=== PATIENT | female | born 1950 | race Caucasian/White ===

== ENCOUNTER → 2017-05-24 | Day surgery (SDC) | payer MEDICARE ==
--- NOTE | 2017-05-24 12:15 | MMO ---
STEREOTACTIC GUIDED LEFT BREAST BIOPSY: Date: 05/24/17 HISTORY: Increasing number of microcalcifications in the left breast. Biopsy was requested. TECHNIQUE: This examination was performed by Dr. Forde. Microcalcifications are seen within the anterior dept h left breast with several loosely grouped calcifications noted. More anteriorly and more closely cl ustered grouping of microcalcifications were localized with stereotactic guidance. Biopsy was then p erformed by Dr. Forde and will be dictated as a separate report. Biopsy marker clip was present on post biopsy imaging. IMPRESSION: 1. Successful stereotactic guided localization of left breast microcalcifications. Several microcal cifications are seen in the left breast which have increased in number compared to prior mammograms, and the more closely clustered grouping of microcalcifications anteriorly were localized as describ ed above. 2. Localization clip is noted in place on final images. POS: NICOLE
--- NOTE | 2017-05-24 12:21 | MMO ---
SPECIMEN MAMMOGRAM: Date: 05/24/17 HISTORY: Increasing microcalcifications in the anterior depth left breast. Stereotactic guided breast biopsy was performed. Specimen mammogram was then performed for evaluation of microcalcifications. FINDINGS: The specimen mammogram demonstrates scattered punctate microcalcifications within several provided c ore specimens. IMPRESSION: Microcalcifications seen within specimen mammogram. POS: NICOLE
--- NOTE | 2017-05-24 12:25 | MMO ---
POST BIOPSY UNILATERAL LEFT MAMMOGRAM: Date: 05/24/17 HISTORY: Increasing number of microcalcifications in the left breast. A stereotactic guided breast biopsy was performed of the calcifications located more anteriorly which had increased in number. Additional g rouping of microcalcifications were also seen within the slightly outer and upper left breast as wel l, but these calcifications based on mammographic appearance appeared similar to an appearance to th e calcifications which were biopsied. FINDINGS: Comparison made with prior mammograms obtained at [facility] on 05/07/17. A biopsy marker clip is now present within the slightly outer left breast in a retroareolar location. The previousl y seen microcalcifications in this region are not visualized. Biopsy is currently pending. IMPRESSION: Post biopsy mammograms demonstrate biopsy marker clip in place at site of recent biopsy. Microcalcif ications were seen in the specimen mammogram. However, if the biopsy results indicate benign finding s, a short 6 month follow-up unilateral left mammogram is recommended, which is customary for post b enign biopsy results. POS: NICOLE
--- NOTE | 2017-05-25 07:08 | OP ---
DATE OF PROCEDURE: 05/24/2017 PREOPERATIVE DIAGNOSIS: Left breast microcalcifications. POSTOPERATIVE DIAGNOSIS: Left breast microcalcifications. OPERATION PERFORMED: Left breast stereotactic biopsy with clip placement. SURGEON: Michael Forde M.D. ANESTHESIA: A 1% lidocaine with epinephrine. INDICATIONS: The patient is a 67-year-old white female. She was noted to have microcalcifications within her left breast on recent mammography. She is taken to the stereotactic imaging suite at thi s time for stereotactic biopsy. RADIOLOGIST: For this procedure is Dr. Julius Diamond. DESCRIPTION OF OPERATION: Informed consent was obtained. The patient was taken to the stereotactic imaging suite where she was placed in the prone position on the imaging table. Her left breast was placed in suspension and compression. Images from the breast were reviewed by Dr. Diamond and microc alcifications were selected for biopsy. Coordinates were transmitted to the imaging table. A later al to medial approach was selected. The lateral aspect of the breast was prepped with Betadine and locally anesthetized with 1% lidocaine with epinephrine. A small stab incision was created and a bi opsy needle was advanced into the breast uneventfully. Pre- and post-fire images were obtained. Si x circumferential vacuum-assisted core needle biopsies were obtained. The tissue was submitted for specimen mammography, which revealed evidence of faint microcalcifications within the tissue. A loc alizing clip was then deployed within the tissue. Needle was removed. The incision was then closed with Steri-Strips. Postprocedure mammogram was obtained. The patient tolerated the procedure well . There were no complications. She was discharged home and will follow up with myself in 2-3 days to discuss pathology.
== END ==
LOC: MAMMO 07:08
PROVIDERS: ATTEND Internal Medicine
DX: D05.12 Intraductal carcinoma in situ of left breast (principal)
CPT/HCPCS: 19081; 76098; 88305; 88341; 88342; G0206; 88361

== ENCOUNTER 2017-07-17 09:09 | Outpatient (CLI) | payer MEDICARE ==
--- NOTE | 2017-07-25 19:32 | EKG ---
Test Reason : Blood Pressure : / mmHG Vent. Rate : 067 BPM Atrial Rate : 067 BPM P-R Int : 132 ms QRS Dur : 076 ms QT Int : 396 ms P-R-T Axes : 062 073 058 degrees QTc Int : 418 ms Normal sinus rhythm Normal ECG No previous ECGs available Confirmed by CONCEPCION SALAS (2) on 07/25/2017 7:31:36 PM Referred By: JD Confirmed By:CONCEPCION SALAS
== END 2017-07-17 09:10 | disposition home or self-care (01) ==
LOC: LABBT 09:09
PROVIDERS: ATTEND Specialist
DX: Z01.818 Encounter for other preprocedural examination (principal); D05.12 Intraductal carcinoma in situ of left breast
CPT/HCPCS: 93005; 93010

== ENCOUNTER 2017-07-23 07:00 | Day surgery (SDC) | payer MEDICARE ==
[2017-07-17 09:31] VITALS: BMI 26.4
[2017-07-23 11:17] LABS: #Basophils 0.1 thou/uL (0.0-0.2); #Eosinphils 0.1 thou/uL (0.0-0.7); #Lymphocytes 2.4 thou/uL (1.20-3.40); #Monocytes 0.5 thou/uL (0.11-0.59); #Neutrophils 4.5 thou/uL (1.40-6.50); %Basophils 1.1 % (0.0-1.0); %Eosinophils 1.9 % (0.0-10.0); %Lymphocytes 31.8 % (21.0-51.0); %Monocytes 6.2 % (0.0-10.0); Hemoglobin 12.9 g/dL (12.0-16.0); Mean Corpuscular HGB CONC 32.9 g/dL (32.0-36.0); Mean Corpuscular Hemoglobin 31.6 pg (27.0-31.0); Mean Platelet Volume 6.9 fL (7.4-10.4); Platelet Count 253 thou/uL (130-400); RBC Distribution Width 11.6 % (11.5-14.5); Red Blood Cell (RBC) Count 4.07 mill/uL (4.20-5.40); White Blood Cell (WBC) Count 7.6 thou/uL (4.8-10.8)
[2017-07-23 11:39] LABS: Anion Gap 12 mmol/L (10-20); BUN (Urea Nitrogen) 16 mg/dL (9.8-20.1); Calc. Creatinine Clearance 79 mL/min (70-130); Calcium 9.5 mg/dL (7.8-10.44); Carbon Dioxide 26 mmol/L (23-31); Chloride 106 mmol/L (98-107); Estimated GFR-MDRD 75; Glucose 95 mg/dL (80-115); Potassium 4.4 mmol/L (3.5-5.1); Sodium 140 mmol/L (136-145)
[2017-07-23] MEDS ORDERED: Bupivacaine/Epinephrine 0.25% 30 ML VIAL ONE ×2 (11:52→12:35)
[2017-07-23] MEDS ORDERED: Isosulfan Blue 50 MG/5 ML VIAL ONE (11:52)
[2017-07-23] MEDS ORDERED: CEFAZOLIN/Water 2 GM/20 ML SYRINGE ONE (11:53)
[2017-07-23] MEDS ORDERED: Ketorolac Tromethamine 30 MG/ML VIAL ONE (11:53)
--- NOTE | 2017-07-23 11:54 | MMO ---
LEFT BREAST NEEDLE AND WIRE LOCALIZATION MAMMOGRAPHIC GUIDED: Date: 07/22/17 CLINICAL HISTORY: Left breast cancer. Patient presents for needle localization prior to excisional biopsy. PROCEDURE: Informed consent was obtained. The patient was escorted to the mammographic procedural suite. The pat ient was placed into the mammography chair with left breast in compression. Left breast was prepped a nd draped in standard sterile fashion. Topical anesthesia was achieved with buffered 1% lidocaine. S ubsequently, a 5.0 cm [place] needle was advanced with mammographic guidance through the site of intere st within the left breast which is marked by the biopsy marking clip. Images were marked for the surg sil. No procedural complications. IMPRESSION: Technically successful needle and wire localization under mammographic guidance, of the left breast p rior to excisional biopsy. POS: NICOLE
[2017-07-23] MEDS ORDERED: Fentanyl 100 MCG/2 ML VIAL ONE (13:08)
[2017-07-23] MEDS ORDERED: Midazolam HCl 2 mg/2 ml Vial ONE (13:08)
--- NOTE | 2017-07-23 15:10 | MMO ---
SURGICAL SPECIMEN MAMMOGRAPHY: Date: 07/23/17 HISTORY: Left breast cancer. Needle localization. FINDINGS: Mammographic evaluation of the surgical specimen obtained by Dr. Forde shows the distal portion of the localization wire and a small dystrophic calcification. The localization clip and hyperdense focu s associated with the previous biopsy are not visualized in the specimen. The clip is likely more lat eral and anterior to the obtained tissue. Findings called to Dr. Forde in the operating room at 1435 hours. CODE CR. POS: SJ
[2017-07-23] MEDS ORDERED: Lidocaine 1% PF 5 ML VIAL ONE (15:38)
[2017-07-23] MEDS ORDERED: ePHEDrine/0.9% NaCl/PF SYRINGE 50 mg/10 ml ONE (15:38)
[2017-07-23] MEDS ORDERED: Propofol 200 MG/20 ML VIAL ONE (15:38)
--- NOTE | 2017-07-24 11:57 | OP ---
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 POSTOPERATIVE DIAGNOSIS: Left breast ductal carcinoma in situ. OPERATION PERFORMED: Left breast needle localized lumpectomy, left axillary sentinel lymph node biop sy. SURGEON: Michael Forde M.D. ANESTHESIA: General endotracheal. INDICATIONS: The patient is a 67-year-old white female. She presented with a diagnosis of left emily st DCIS that was diagnosed on stereotactic biopsy. A marking clip was present within the breast. Le ft breast needle localization was performed by Radiology in a lateral to medial fashion. Lymphoscint igraphy was performed as well. DESCRIPTION OF PROCEDURE: Informed consent was obtained. The patient was taken to the operating marquis m where general endotracheal anesthesia was obtained with the patient in supine position. A 2 mL of Lymphazurin was infiltrated into the periareolar subdermal tissue and it was massaged for five minute s. The breast was then prepped with ChloraPrep and draped in sterile fashion. Attention was turned first to the axilla. Local anesthetic was infiltrated and a transverse incision was created at the inferior aspect of the axilla. Dissection was carried through skin and subcutane ous tissue. The superficial axillary fascia was incised. Neoprobe was utilized to identify areas of maximum radio intensity within the breast. There was one primary dominant node that was brightly bl ue stained and dominantly radioactive. This was dissected circumferentially and all investing tissue was ligated between clamps and 3-0 silk ties. There was one other node that had some mild blue stai yolanda and decreased levels of radioactivity. There appeared to be an adjacent node associated with th is and they were dissected, gathered and submitted. Pathology notified after the operation the touch preps of these three lymph nodes were all negative. Hemostasis was meticulously achieved. The wound was closed in layers with 3-0 and 4-0 Monocryl and a n additional local anesthetic was infiltrated during the course of closure. Attention was turned to the breast. The needle entered the breast in the lower outer quadrant near t he areolar edge. It traversed superiorly and medially. Because of the subareolar location, it was d ifficult to ascertain with the optimum approach would be. It appeared that the clip and the tip of t he needle were going to be lateral to the areola in the upper outer breast. I therefore decided to c reate a circumareolar incision in the upper outer breast as this appeared to be closer to the area of the suspected malignant tissue. Local anesthetic was infiltrated and a circumareolar incision was c reated and centered on the 10 o'clock radian. Dissection was carried through skin and subcutaneous t issue. I then dissected the subareolar tissue laterally, elevated with the entire areola. I then di ssected down to the localizing needle. I identified the needle at the point that was about 2.5 cm fr om the tip of the needle. At that point, the wire was passed into the wound and the needle was remov ed. The tissue into which the wire entered was grasped with Allis clamps and a wide core of tissue a round the wire was dissected in a lateral to medial fashion. The tissue with the wire was submitted for specimen mammography. This unfortunately did not include the clip. When I have reexamined the t issue, it was felt that further more superficial dissection. The subareolar tissue had a significant chance of needing to devascularization of the nipple areolar complex and/or significant nipple inver tracy. I decided not to attempt to get anymore superficial tissue because of this. The wound was rafa sed in layers with 3-0 and 4-0 Monocryl. Additional local anesthetic was infiltrated into the wound. Dermabond was placed externally. There were no complications. Blood loss was negligible. The pat ient tolerated the procedure well and was taken to recovery room in stable condition.
== END 2017-07-23 16:30 | disposition home or self-care (01) ==
LOC: CANPRESDC → SDC 07:00
PROVIDERS: ATTEND Specialist
PROC: 0HBU0ZZ Excision of Left Breast, Open Approach (ICD-10-PCS; principal; 2017-07-23)
PROC: 07B60ZX Excision of Left Axillary Lymphatic, Open Approach, Diagnostic (ICD-10-PCS; 2017-07-23)
DX: D05.12 Intraductal carcinoma in situ of left breast (principal); F17.210 Nicotine dependence, cigarettes, uncomplicated; Z98.890 Other specified postprocedural states
CPT/HCPCS: 19281; 19301; 38525; 38792; 76098; 80048; 85025; 88307; 88333; 88334; 88342; Q9968; 36415; J0131; J1885; J2001; J2250; J2704; J3010

== ENCOUNTER → 2017-07-23 | Day surgery (SDC) | payer MEDICARE ==
--- NOTE | 2017-07-23 11:20 | NM ---
NUCLEAR MEDICINE LEFT BREAST LYMPHOSCINTIGRAPHY: Date: 07/23/17 CLINICAL HISTORY: Breast cancer. Patient has undergone needle/wire localization prior to excisional biopsy. RADIOPHARMACEUTICAL: 0.4 mCi technetium-99m filtered sulfur colloid, subcutaneous injections. PROCEDURE: Informed consent was obtained. The patient was escorted to the lymphoscintigraphy suite and placed in the supine position. The left breast was prepped and draped in the standard sterile fashion and subs equently four separate aliquots were administered intradermal totaling 0.4 mCi technetium-99m sulfur colloid. Subsequent imaging was performed which revealed scintigraphic activity localizing the left a xilla indicative of lymph node. IMPRESSION: Technically successful left breast lymphoscintigraphy with activity localizing to the left axilla ind icating lymph node. POS: NICOLE
== END ==
LOC: BICMAMMO 06:36
PROVIDERS: ATTEND Specialist
PROC: 0HBU0ZZ Excision of Left Breast, Open Approach (ICD-10-PCS; principal; 2017-07-23)
PROC: 07B60ZX Excision of Left Axillary Lymphatic, Open Approach, Diagnostic (ICD-10-PCS; 2017-07-23)
DX: D05.12 Intraductal carcinoma in situ of left breast (principal); Z80.6 Family history of leukemia
CPT/HCPCS: 78195; A9541

== ENCOUNTER 2018-02-10 09:21 | Outpatient (CLI) | payer MEDICARE | END 2018-02-10 09:22 | disposition home or self-care (01) | LOC: BICMAMMO 09:21 | PROVIDERS: ATTEND Specialist | DX: D05.12 Intraductal carcinoma in situ of left breast (principal); Z85.3 Personal history of malignant neoplasm of breast | CPT/HCPCS: 77066; G0279 ==

== ENCOUNTER 2018-08-01 10:39 | Outpatient (CLI) | payer MEDICARE | END 2018-08-01 10:40 | disposition home or self-care (01) | LOC: BICMAMMO 10:39 | PROVIDERS: ATTEND Specialist | DX: D05.12 Intraductal carcinoma in situ of left breast (principal) | CPT/HCPCS: 77065; G0279 ==

== ENCOUNTER 2019-02-17 09:14 | Outpatient (CLI) | payer MEDICARE ==
--- NOTE | 2019-02-17 10:00 | MMO ---
Bilateral MAMMO Bilat Diag [facility]. CLINICAL HISTORY: Patient is 68 years old and is seen for diagnostic exam. The patient has no family history of breast cancer. The patient has a history of ductal carcinoma in situ. in the left breast in May,. The patient has a history of left Lumpectomy in July, - dcis and left Stereotatic Biopsy in May, - dcis. VIEWS: The views performed were: bilateral craniocaudal with tomosynthesis; bilateral mediolateral oblique with tomosynthesis; and bilateral mediolateral with tomosynthesis. FILMS COMPARED: The present examination has been compared to prior imaging studies performed at [facility] on 02/10/2018 and 08/01/2018. MAMMOGRAM FINDINGS: The breasts are heterogeneously dense, which could obscure a lesion on mammography. There is a stable biopsy clip seen in the left breast. There are no suspicious masses, suspicious calcifications, or new areas of architectural distortion. IMPRESSION: THERE IS NO MAMMOGRAPHIC EVIDENCE OF MALIGNANCY. A ROUTINE FOLLOW-UP MAMMOGRAM IN 1 YEAR IS RECOMMENDED. THE RESULTS OF THIS EXAM WERE SENT TO THE PATIENT. ACR BI-RADS Category 2 - Benign finding MAMMOGRAPHY NOTE: 1. A negative mammogram report should not delay a biopsy if a dominant of clinically suspicious mass is present. 2. Approximately 10% to 15% of breast cancers are not detected by mammography. 3. Adenosis and dense breasts may obscure an underlying neoplasm. Reported by: JAYESH MCDANIEL MD Electonically Signed: [id number]
== END 2019-02-17 09:15 | disposition home or self-care (01) ==
LOC: BICMAMMO 09:14
PROVIDERS: ATTEND Specialist
DX: Z08 Encounter for follow-up examination after completed treatment for malignant neoplasm (principal); Z85.3 Personal history of malignant neoplasm of breast; Z98.890 Other specified postprocedural states
CPT/HCPCS: 77066; G0279

== ENCOUNTER 2021-03-13 15:00 | Outpatient (CLI) | payer MEDICARE | END 2021-03-13 15:01 | disposition home or self-care (01) | LOC: BICMAMMO 15:00 | PROVIDERS: ATTEND Specialist | DX: Z08 Encounter for follow-up examination after completed treatment for malignant neoplasm (principal); Z85.3 Personal history of malignant neoplasm of breast | CPT/HCPCS: 77066; G0279 ==

== ENCOUNTER 2022-03-14 09:32 | Outpatient (CLI) | payer MEDICARE | END 2022-03-14 09:33 | disposition home or self-care (01) | LOC: BICMAMMO 09:32 | PROVIDERS: ATTEND Specialist | DX: Z12.31 Encounter for screening mammogram for malignant neoplasm of breast (principal) | CPT/HCPCS: 77063; 77067 ==

== ENCOUNTER 2023-05-13 12:08 | Outpatient (CLI) | payer MEDICARE | END 2023-05-13 12:09 | disposition home or self-care (01) | LOC: BICMAMMO 12:08 | PROVIDERS: ATTEND Specialist | DX: Z12.31 Encounter for screening mammogram for malignant neoplasm of breast (principal); Z85.3 Personal history of malignant neoplasm of breast; Z98.890 Other specified postprocedural states | CPT/HCPCS: 77063; 77067 ==

== ENCOUNTER 2024-05-18 10:58 | Outpatient (CLI) | payer MEDICARE | END 2024-05-18 10:59 | disposition home or self-care (01) | LOC: BICMAMMO 10:58 | PROVIDERS: ATTEND Specialist | DX: Z12.31 Encounter for screening mammogram for malignant neoplasm of breast (principal); Z85.3 Personal history of malignant neoplasm of breast; Z98.890 Other specified postprocedural states | CPT/HCPCS: 77063; 77067 ==

== ENCOUNTER 2025-05-19 08:31 | Outpatient (CLI) | payer MEDICARE | END 2025-05-19 08:32 | disposition home or self-care (01) | LOC: BICMAMMO 08:31 | PROVIDERS: ATTEND Specialist | DX: Z12.31 Encounter for screening mammogram for malignant neoplasm of breast (principal); Z86.000 Personal history of in-situ neoplasm of breast; Z98.890 Other specified postprocedural states | CPT/HCPCS: 77063; 77067 ==